=== PATIENT | female | born 1945 | race Caucasian/White ===

== ENCOUNTER 2020-11-07 14:59 | Inpatient (IN) | payer MEDICARE, OTHER ==
[2020-11-07] MEDS ORDERED: Sodium Chloride 0.9% 10 ML Syringe FLUSH PRN (15:25)
--- NOTE | 2020-11-07 16:36 | EDM.PDOC ---
ED HPI GENERAL MEDICAL PROBLEM - General Chief Complaint: Respiratory Problem Stated Complaint: COVID +/LOW O2 Time Seen by Provider: 11/07/20 15:00 Source of Information: Reports: Patient, RN Notes Reviewed History Limitations: Reports: No Limitations - History of Present Illness INITIAL COMMENTS - FREE TEXT/NARRATIVE: Patient is a 75-year-old female presenting to the emergency department with complaints of cough, shortness of breath, and diarrhea. Symptoms began approximately 8 days ago. She was diagnosed with Covid 6 days ago. She states that her was diagnosed today and they were given a pulse oximeter. They checked her oxygen saturations and it was in the upper 80s. She denies any fever or chills. She has had some diarrhea but denies any nausea, vomiting, or abdominal pain. Vital signs on triage showed an oxygen saturation of 88% on room air. Pulse 55, blood pressure 158/86, respiratory rate 16. - Related Data Allergies Allergy/AdvReac Type Severity Reaction Status Date / Time morphine Allergy Rash Verified 11/07/20 15:14 prednisone Allergy flushing Verified 11/07/20 17:21 Home Meds: Home Meds Aspirin [Ecotrin EC] 81 mg PO DAILY 11/07/20 [History] Calcium Carbonate/Vitamin D3 [Calcium 600Mg-D3 400 Unit Sfgl] 1 tab PO DAILY 11/07/20 [History] Cholecalciferol (Vitamin D3) [Vitamin D3] 2,000 unit PO DAILY 11/07/20 [History] Cyanocobalamin (Vitamin B-12) [Vitamin B-12] 1,000 mcg PO DAILY 11/07/20 [History] Metoprolol Succinate 12.5 mg PO DAILY 11/07/20 [History] Simvastatin [Zocor] 20 mg PO BEDTIME 11/07/20 [History] lisinopriL [Lisinopril] 20 mg PO DAILY 11/07/20 [History] Zinc Sulfate [Zincate] 220 mg PO DAILY #14 cap 11/09/20 [Rx] dexAMETHasone [Dexamethasone] 6 mg PO DAILY #3 tablet 11/09/20 [Rx] Past Medical History Cardiovascular History: Reports: High Cholesterol, Hypertension - Infectious Disease History Infectious Disease History: Reports: Novel Coronavirus - Past Surgical History GI Surgical History: Reports: Appendectomy Musculoskeletal Surgical History: Reports: Hip Replacement, Shoulder Replacement, Other (See Below) Other Musculoskeletal Surgeries/Procedures:: kneecap replacement Social & Family History - Tobacco Use Tobacco Use Status *Q: Former Tobacco User Used Tobacco, but Quit: Yes Month/Year Tobacco Last Used: 29 years ago - Caffeine Use Caffeine Use: Reports: None - Recreational Drug Use Recreational Drug Use: No ED ROS GENERAL - Review of Systems Review Of Systems: See Below Constitutional: Reports: Fatigue. Denies: Fever, Chills HEENT: Reports: No Symptoms Respiratory: Reports: Shortness of Breath, Cough. Denies: Wheezing, Pleuritic Chest Pain Cardiovascular: Reports: No Symptoms. Denies: Chest Pain, Lightheadedness Endocrine: Reports: No Symptoms GI/Abdominal: Reports: Diarrhea. Denies: Abdominal Pain, Nausea, Vomiting : Reports: No Symptoms Musculoskeletal: Reports: No Symptoms Skin: Reports: No Symptoms Neurological: Reports: No Symptoms Psychiatric: Reports: No Symptoms Hematologic/Lymphatic: Reports: No Symptoms Immunologic: Reports: No Symptoms ED EXAM, GENERAL - Physical Exam Exam: See Below General Appearance: Alert, WD/WN, No Apparent Distress Respiratory/Chest: No Respiratory Distress, No Accessory Muscle Use, Chest Non- Tender, Crackles (Right middle and lower lobe. Left lower lobe). No: Wheezing Cardiovascular: Normal Peripheral Pulses, Regular Rate, Rhythm, No Edema, No Gallop, No JVD, No Murmur, No Rub Neurological: Alert, Oriented, CN II-XII Intact, Normal Cognition, Normal Gait, Normal Reflexes, No Motor/Sensory Deficits Psychiatric: Normal Affect, Normal Mood Skin Exam: Warm, Dry, Intact, Normal Color, No Rash #1 Interpretation EKG Date: 11/07/20 Time: 15:40 Rhythm: NSR Rate (Beats/Min): 85 [place]: Normal P-Wave: Present QRS: Normal ST-T: Normal QT: Normal Course - Vital Signs Last Recorded V/S: Last Vital Signs Temp 98.4 F 11/09/20 11:12 Pulse 66 11/09/20 11:12 Resp 18 11/09/20 11:12 BP 118/67 11/09/20 11:12 Pulse Ox 90 L 11/09/20 11:12 - Orders/Labs/Meds Labs: Laboratory Tests 11/07/20 11/07/20 11/07/20 Range/Units 15:54 16:04 16:04 WBC 5.57 (3.98-10.04) K/mm3 RBC 4.25 (3.98-5.22) M/mm3 Hgb 12.6 (11.2-15.7) gm/dl Hct 36.9 (34.1-44.9) % MCV 86.8 (79.4-94.8) fl MCH 29.6 (25.6-32.2) pg MCHC 34.1 (32.2-35.5) g/dl RDW Std Deviation 37.7 (36.4-46.3) fL Plt Count 210 (182-369) K/mm3 MPV 10.5 (9.4-12.3) fl Neut % (Auto) 78.0 H (34.0-71.1) % Lymph % (Auto) 9.9 L (19.3-51.7) % [place] % (Auto) 11.7 (4.7-12.5) % Eos % (Auto) 0 L (0.7-5.8) Baso % (Auto) 0.2 (0.1-1.2) % Neut # (Auto) 4.35 (1.56-6.13) K/mm3 Lymph # (Auto) 0.55 L (1.18-3.74) K/mm3 [place] # (Auto) 0.65 H (0.24-0.36) K/mm3 Eos # (Auto) 0.00 L (0.04-0.36) K/mm3 Baso # (Auto) 0.01 (0.01-0.08) K/mm3 Manual Slide Review Abnormal smear D-Dimer, Quantitative 0.91 H (0.19-0.50) mg/L Puncture Site Rt radial ABG pH 7.48 H (7.35-7.45) ABG pCO2 32.7 L (35.0-45.0) mmHg ABG pO2 60.0 L (80.0-100.0) mmHg ABG HCO3 24.2 (22.0-26.0) meq/L ABG O2 Saturation 90.7 L (96.0-97.0) % ABG Base Excess 1.6 (-2-2.0) Jorden Test Positive A-a Gradient 49 mmHg O2 Delivery Device Room air Oxygen Flow Rate 0.0 FiO2 21.00 (21.00-100.00) % Sodium (136-145) mEq/L Potassium (3.5-5.1) mEq/L Chloride (98-107) mEq/L Carbon Dioxide (21-32) mEq/L Anion Gap (5-15) BUN (7-18) mg/dL Creatinine (0.55-1.02) mg/dL Est Cr Clr Drug Dosing mL/min Estimated GFR (MDRD) (>60) mL/min BUN/Creatinine Ratio (14-18) Glucose (83-115) mg/dL Calcium (8.5-10.1) mg/dL Ferritin (8-252) ng/ml Total Bilirubin (0.2-1.0) mg/dL AST (15-37) U/L ALT (14-59) U/L Alkaline Phosphatase (46-116) U/L Lactate Dehydrogenase (81-234) U/L Troponin I (0.00-0.056) ng/mL C-Reactive Protein (<1.0) mg/dL NT-Pro-B Natriuret Pep (0-125) pg/mL Total Protein (6.4-8.2) g/dl Albumin (3.4-5.0) g/dl Globulin gm/dL Albumin/Globulin Ratio (1-2) 11/07/20 11/07/20 11/07/20 Range/Units 16:04 16:04 16:04 WBC (3.98-10.04) K/mm3 RBC (3.98-5.22) M/mm3 Hgb (11.2-15.7) gm/dl Hct (34.1-44.9) % MCV (79.4-94.8) fl MCH (25.6-32.2) pg MCHC (32.2-35.5) g/dl RDW Std Deviation (36.4-46.3) fL Plt Count (182-369) K/mm3 MPV (9.4-12.3) fl Neut % (Auto) (34.0-71.1) % Lymph % (Auto) (19.3-51.7) % [place] % (Auto) (4.7-12.5) % Eos % (Auto) (0.7-5.8) Baso % (Auto) (0.1-1.2) % Neut # (Auto) (1.56-6.13) K/mm3 Lymph # (Auto) (1.18-3.74) K/mm3 [place] # (Auto) (0.24-0.36) K/mm3 Eos # (Auto) (0.04-0.36) K/mm3 Baso # (Auto) (0.01-0.08) K/mm3 Manual Slide Review D-Dimer, Quantitative (0.19-0.50) mg/L Puncture Site ABG pH (7.35-7.45) ABG pCO2 (35.0-45.0) mmHg ABG pO2 (80.0-100.0) mmHg ABG HCO3 (22.0-26.0) meq/L ABG O2 Saturation (96.0-97.0) % ABG Base Excess (-2-2.0) Jorden Test A-a Gradient mmHg O2 Delivery Device Oxygen Flow Rate FiO2 (21.00-100.00) % Sodium 125 L (136-145) mEq/L Potassium 3.1 L (3.5-5.1) mEq/L Chloride 89 L (98-107) mEq/L Carbon Dioxide 26 (21-32) mEq/L Anion Gap 13.1 (5-15) BUN 10 (7-18) mg/dL Creatinine 0.8 (0.55-1.02) mg/dL Est Cr Clr Drug Dosing 48.80 mL/min Estimated GFR (MDRD) > 60 (>60) mL/min BUN/Creatinine Ratio 12.5 L (14-18) Glucose 105 (83-115) mg/dL Calcium 8.9 (8.5-10.1) mg/dL Ferritin 470 H (8-252) ng/ml Total Bilirubin 0.4 (0.2-1.0) mg/dL AST 25 (15-37) U/L ALT 23 (14-59) U/L Alkaline Phosphatase 59 (46-116) U/L Lactate Dehydrogenase 233 (81-234) U/L Troponin I < 0.017 (0.00-0.056) ng/mL C-Reactive Protein 7.7 H* (<1.0) mg/dL NT-Pro-B Natriuret Pep 557 H (0-125) pg/mL Total Protein 6.2 L (6.4-8.2) g/dl Albumin 3.0 L (3.4-5.0) g/dl Globulin 3.2 gm/dL Albumin/Globulin Ratio 0.9 L (1-2) Meds: Medications Discontinued Medications Generic Name Dose Route Start Last Admin Trade Name Freq PRN Reason Stop Dose Admin Acetaminophen 650 mg 11/07/20 19:25 Tylenol PO Q4H PRN Pain (Mild 1-3)/fever Acetaminophen 650 mg 11/07/20 19:25 Tylenol RECTAL Q4H PRN Pain (mild 1-3) Hydrocodone Bitart/Acetaminophen 1 tab 11/07/20 19:25 [place] 325-5 Mg PO Q4H PRN Pain (moderate 4-6) Albuterol/Ipratropium 3 ml 11/07/20 19:25 Duoneb 3.0-0.5 Mg/3 Ml NEB Q4H PRN Shortness Of Breath/wheezing Aspirin 81 mg 11/08/20 09:00 11/09/20 09:10 Halfprin PO 81 mg DAILY CHARLES Administration Calcium Carbonate 1 tab 11/08/20 09:00 11/09/20 09:09 Calcium Carbonate/Vitamin D 600 Mg-200 Unit PO 1 tab DAILY CHARLES Administration Cholecalciferol 50 mcg 11/08/20 09:00 11/09/20 09:10 Vitamin D3 PO 50 mcg DAILY CHARLES Administration Cyanocobalamin 1,000 mcg 11/08/20 09:00 11/09/20 09:10 Vitamin B12 PO 1,000 mcg DAILY CHARLES Administration Dexamethasone 6 mg 11/07/20 17:20 11/07/20 18:05 Dexamethasone PO 11/07/20 17:21 6 mg ONETIME ONE Administration Dexamethasone 6 mg 11/08/20 09:00 11/08/20 08:45 Decadron IVPUSH 6 mg DAILY CHARLES Administration Dexamethasone 6 mg 11/09/20 09:00 11/09/20 09:11 Dexamethasone PO 11/16/20 09:01 6 mg DAILY CHARLES Administration Enoxaparin Sodium 40 mg 11/08/20 09:00 11/09/20 09:11 Lovenox SUBCUT 40 mg DAILY CHARLES Administration Guaifenesin/Phenylephrine HCl 10 ml 11/07/20 19:36 Robitussin Dm PO Q4H PRN Cough Hydralazine HCl 20 mg 11/07/20 19:32 Apresoline IVPUSH Q4H PRN Hypertension Hydromorphone HCl 0.25 mg 11/07/20 19:25 Dilaudid IVPUSH Q2H PRN Pain (severe 7-10) Sodium Chloride 1,000 mls @ 150 mls/hr 11/07/20 17:19 11/07/20 18:05 Normal Saline IV 11/07/20 23:58 150 mls/hr NOW STA Administration Promethazine HCl 6.25 mg/ 50.25 mls @ 100 mls/hr 11/07/20 19:25 Sodium Chloride IV Q6H PRN Nausea/Vomiting Remdesivir 200 mg/ Sodium 250 mls @ 250 mls/hr 11/07/20 20:46 11/07/20 21:41 Chloride IV 11/07/20 20:47 250 mls/hr ONETIME ONE Administration Remdesivir 100 mg/ Sodium 100 mls @ 100 mls/hr 11/08/20 09:00 Chloride IV 11/11/20 09:59 Q24H CHARLES Remdesivir 100 mg/ Sodium 100 mls @ 100 mls/hr 11/08/20 21:30 11/08/20 21:22 Chloride IV 11/11/20 22:29 100 mls/hr Q24H CHARLES Administration Insulin Human Lispro 0 unit 11/07/20 19:31 Humalog SUBCUT TIDAC PRN Hyperglycemia Protocol Insulin Human Lispro 0 unit 11/08/20 11:00 11/09/20 11:52 Humalog SUBCUT Not Given TIDAC CHARLES Protocol Lisinopril 20 mg 11/08/20 09:00 11/09/20 09:09 Prinivil PO 20 mg DAILY CHARLES Administration Metoprolol Succinate 12.5 mg 11/08/20 09:00 11/08/20 09:16 Toprol Xl PO Not Given DAILY CHARLES Metoprolol Succinate 12.5 mg 11/08/20 21:00 11/08/20 21:24 Toprol Xl PO 12.5 mg BEDTIME CHARLES Administration Metoprolol Tartrate 5 mg 11/07/20 19:33 Lopressor IVPUSH Q6H PRN Tachycardia Ondansetron HCl 4 mg 11/07/20 19:25 Zofran IV Q6H PRN Nausea/Vomiting Polyethylene Glycol 17 gm 11/07/20 19:25 Miralax PO DAILY PRN Constipation Potassium Chloride 40 meq 11/07/20 17:18 11/07/20 18:05 Klor-Con M20 PO 11/07/20 17:19 40 meq ONETIME ONE Administration Senna/Docusate Sodium 1 tab 11/07/20 19:25 Senna Plus PO BID PRN Constipation Simvastatin 20 mg 11/07/20 21:00 11/08/20 21:23 Zocor PO 20 mg BEDTIME CHARLES Administration Sodium Chloride 10 ml 11/07/20 15:25 11/07/20 18:09 Saline Flush FLUSH 10 ml ASDIRECTED PRN Administration Keep Vein Open Zinc Sulfate 220 mg 11/08/20 09:00 11/09/20 09:08 Zincate PO 220 mg DAILY CHARLES Administration - Re-Assessments/Exams Free Text/Narrative Re-Assessment/Exam: Patient is a 75-year-old female presenting to the emergency department with complaints of cough, shortness of breath, and low oxygen saturations. She was diagnosed as Covid +6 days ago, but has had symptoms for 8 days. Oxygen saturations at home were found to be in the upper 80s. On triage, her oxygen saturation was 88%. Since triage, her oxygen has been maintaining 87 to 89% on room air. I have ordered CBC, CMP, CRP, D-dimer, troponin, proBNP, LDH, ferritin, chest x-ray, EKG, ABGs. 11/07/20 16:25 ABGs show a pH of 7.48, PCO2 32.7, PO2 60, O2 saturation 90.7. Patient has been placed on 2 L of O2 and is saturating 96 to 97%. 11/07/20 1800 Hematology was significant for D-dimer elevated 0.91, sodium low at 125, p otassium 3.1, ferritin 470, CRP 7.7, proBNP 557. Troponin was negative. Chest x-ray shows some increased haziness in the right lower lobe possibly due to Covid pneumonia. Official radiologist read pending. Patient's oxygen saturation was 87 to 89% on room air. She is currently saturating in the mid 90s on 2 L by nasal cannula. I have ordered NS at 150/h as well as potassium 40 mEq p.o. We will give her 6 mg of p.o. dexamethasone. Called and spoke with hospitalist on-call, Dr. Renada. He will admit to the patient. Departure - Departure Time of Disposition: 18:00 Disposition: Admitted As Inpatient 67 Condition: Good Clinical Impression: COVID-19, Hypoxemia - Discharge Information Sepsis Event Note (ED) - Evaluation Sepsis Screening Result: No Definite Risk
[2020-11-07] MEDS ORDERED: Potassium Chloride 20 MEQ Tab.ER PO ONE (17:18)
[2020-11-07] MEDS ORDERED: Sodium Chloride 0.9% 1,000 ML IV STA (17:19)
[2020-11-07] MEDS ORDERED: Dexamethasone 4 MG Tab PO ONE (17:20)
--- NOTE | 2020-11-07 19:21 | PCM.HP.2 ---
H&P History of Present Illness - General Date of Service: 11/07/20 Admit Problem/Dx: Admission Diagnosis/Problem Admission Diagnosis/Problem Hypoxia Source of Information: Patient, Old Records, Provider, RN Notes Reviewed History Limitations: Reports: Respiratory Distress - History of Present Illness Initial Comments - Free Text/Narative: This is a 75 yo elderly whit female with past medical hx/o HTN, HLD, Hx/o Hip and Shoulder Surgery and Overweight who presented to ED with complaints of worsening COVID-19 infection mainly with increased shortness of breath, wet cough, loss of sense of smell and taste, diarrhea, reduced appetite and tired. No fever or chills. No other GI/ complaints. She has been symptomatic for the past 8 days but diagnosed with Covid-19 6 days ago. Apparently she received no treatment outpatient. Her was just diagnosed today. She states that her O2 sat was in the upper 80s. In ED, she had a documented O2 sat of 88% on RA. Her initial work up in ED shows a CBC remarkable for Neutrophils of 78% and Lymphocytes of 9.9%. Her coagulation study is positive for D-dimer of 0.91. Her ABG shows a pH of 7.48, pCO2 of 32.7, pO2 of 60, HCO3 of 24.2 and O2 sat of 90.7 on 21% FiO2. Her chemistry is significant for Na of 125, K of 3.1, Cl of 89, Ferritin of 470, CRP of 7.7, ProBNP of 557, and Albumin of 3.0. Her chest x-ray shows no obvious infiltrates or consolidation. His LDH is within normal limits. Patient is coming in for further treatment of COVID-19 Infection. - Related Data Allergies/Adverse Reactions: Allergies Allergy/AdvReac Type Severity Reaction Status Date / Time morphine Allergy Rash Verified 11/07/20 15:14 prednisone Allergy flushing Verified 11/07/20 17:21 Home Medications: Home Meds Aspirin [Ecotrin EC] 81 mg PO DAILY 11/07/20 [History] Calcium Carbonate/Vitamin D3 [Calcium 600Mg-D3 400 Unit Sfgl] 1 tab PO DAILY 11/07/20 [History] Cholecalciferol (Vitamin D3) [Vitamin D3] 2,000 unit PO DAILY 11/07/20 [History] Cyanocobalamin (Vitamin B-12) [Vitamin B-12] 1,000 mcg PO DAILY 11/07/20 [History] Metoprolol Succinate 12.5 mg PO DAILY 11/07/20 [History] Simvastatin [Zocor] 20 mg PO BEDTIME 11/07/20 [History] lisinopriL [Lisinopril] 20 mg PO DAILY 11/07/20 [History] Zinc Sulfate [Zincate] 220 mg PO DAILY #14 cap 11/09/20 [Rx] dexAMETHasone [Dexamethasone] 6 mg PO DAILY #3 tablet 11/09/20 [Rx] Past Medical History Cardiovascular History: Reports: High Cholesterol, Hypertension - Infectious Disease History Infectious Disease History: Reports: Novel Coronavirus - Past Surgical History GI Surgical History: Reports: Appendectomy Musculoskeletal Surgical History: Reports: Hip Replacement, Shoulder Replacement, Other (See Below) Other Musculoskeletal Surgeries/Procedures:: kneecap replacement Social & Family History - Tobacco Use Tobacco Use Status *Q: Former Tobacco User Used Tobacco, but Quit: Yes Month/Year Tobacco Last Used: 29 years ago - Caffeine Use Caffeine Use: Reports: None - Recreational Drug Use Recreational Drug Use: No H&P Review of Systems - Review of Systems: Review Of Systems: See Below General: Reports: Decreased Appetite, Other (tired). Denies: Fever, Chills HEENT: Reports: Other (loss of sense of taste and appetite). Denies: Sore Throat Pulmonary: Reports: Shortness of Breath, Cough, Sputum Cardiovascular: Denies: Chest Pain, Edema, Lightheadedness Gastrointestinal: Reports: Diarrhea, Decreased Appetite. Denies: Abdominal Pain, Nausea, Vomiting Genitourinary: Denies: Frequency Musculoskeletal: Denies: Joint Pain Skin: Denies: Pruritis, Rash Psychiatric: Denies: Depression, Anxiety Neurological: Denies: Confusion, Difficulty Walking, Weakness Hematologic/Lymphatic: Denies: Anemia, Easy Bleeding Immunologic: Reports: No Symptoms Exam - Exam Exam: See Below - Vital Signs Vital Signs: Last Vital Signs Temp Pulse 55 L 11/07/20 15:11 Resp 16 11/07/20 15:11 BP 158/86 H 11/07/20 15:11 Pulse Ox 96 11/07/20 17:30 Weight: 68.039 kg - Exam Quality Assessment: Supplemental Oxygen General: Alert, Oriented, Cooperative HEENT: Conjunctiva Clear, EACs Clear, EOMI, Hearing Intact, Mucosa Moist & [place], Nares Patent, Normal Nasal Septum, Posterior Pharynx Clear, Pupils Equal, Pupils Reactive, TMs Clear Neck: Supple, Trachea Midline Lungs: Normal Respiratory Effort, Decreased Breath Sounds Cardiovascular: Regular Rate, Regular Rhythm GI/Abdominal Exam: Normal Bowel Sounds, Soft, Non-Tender, No Organomegaly, No D istention, No Abnormal Bruit (Female) Exam: Deferred Rectal (Female) Exam: Deferred Back Exam: Normal Inspection, Decreased Range of Motion Extremities: Normal Inspection, Normal Range of Motion, Non-Tender, No Pedal Edema, Normal Capillary Refill Peripheral Pulses: 2+: Dorsalis Pedis (L), Dorsalis Pedis (R) Skin: Warm, Dry, Intact Neuro Extensive - Mental Status: Normal Mood/Affect, Normal Cognition, Memory Intact Neuro Extensive - Motor, Sensory, Reflexes: CN II-XII Intact, Normal Gait DTR: 2+: Patella (R), Achilles (R) Psychiatric: Alert, Normal Affect, Normal Mood - Patient Data Lab Results Last 24 hrs: Laboratory Results - last 24 hr 11/07/20 11/07/20 11/07/20 Range/Units 15:54 16:04 16:04 WBC 5.57 (3.98-10.04) K/mm3 RBC 4.25 (3.98-5.22) M/mm3 Hgb 12.6 (11.2-15.7) gm/dl Hct 36.9 (34.1-44.9) % MCV 86.8 (79.4-94.8) fl MCH 29.6 (25.6-32.2) pg MCHC 34.1 (32.2-35.5) g/dl RDW Std Deviation 37.7 (36.4-46.3) fL Plt Count 210 (182-369) K/mm3 MPV 10.5 (9.4-12.3) fl Neut % (Auto) 78.0 H (34.0-71.1) % Lymph % (Auto) 9.9 L (19.3-51.7) % [place] % (Auto) 11.7 (4.7-12.5) % Eos % (Auto) 0 L (0.7-5.8) Baso % (Auto) 0.2 (0.1-1.2) % Neut # (Auto) 4.35 (1.56-6.13) K/mm3 Lymph # (Auto) 0.55 L (1.18-3.74) K/mm3 [place] # (Auto) 0.65 H (0.24-0.36) K/mm3 Eos # (Auto) 0.00 L (0.04-0.36) K/mm3 Baso # (Auto) 0.01 (0.01-0.08) K/mm3 Manual Slide Review Abnormal smear D-Dimer, Quantitative 0.91 H (0.19-0.50) mg/L Puncture Site Rt radial ABG pH 7.48 H (7.35-7.45) ABG pCO2 32.7 L (35.0-45.0) mmHg ABG pO2 60.0 L (80.0-100.0) mmHg ABG HCO3 24.2 (22.0-26.0) meq/L ABG O2 Saturation 90.7 L (96.0-97.0) % ABG Base Excess 1.6 (-2-2.0) Jorden Test Positive A-a Gradient 49 mmHg O2 Delivery Device Room air Oxygen Flow Rate 0.0 FiO2 21.00 (21.00-100.00) % Sodium (136-145) mEq/L Potassium (3.5-5.1) mEq/L Chloride (98-107) mEq/L Carbon Dioxide (21-32) mEq/L Anion Gap (5-15) BUN (7-18) mg/dL Creatinine (0.55-1.02) mg/dL Est Cr Clr Drug Dosing mL/min Estimated GFR (MDRD) (>60) mL/min BUN/Creatinine Ratio (14-18) Glucose (83-115) mg/dL Calcium (8.5-10.1) mg/dL Ferritin (8-252) ng/ml Total Bilirubin (0.2-1.0) mg/dL AST (15-37) U/L ALT (14-59) U/L Alkaline Phosphatase (46-116) U/L Lactate Dehydrogenase (81-234) U/L Troponin I (0.00-0.056) ng/mL C-Reactive Protein (<1.0) mg/dL NT-Pro-B Natriuret Pep (0-125) pg/mL Total Protein (6.4-8.2) g/dl Albumin (3.4-5.0) g/dl Globulin gm/dL Albumin/Globulin Ratio (1-2) 11/07/20 11/07/20 11/07/20 Range/Units 16:04 16:04 16:04 WBC (3.98-10.04) K/mm3 RBC (3.98-5.22) M/mm3 Hgb (11.2-15.7) gm/dl Hct (34.1-44.9) % MCV (79.4-94.8) fl MCH (25.6-32.2) pg MCHC (32.2-35.5) g/dl RDW Std Deviation (36.4-46.3) fL Plt Count (182-369) K/mm3 MPV (9.4-12.3) fl Neut % (Auto) (34.0-71.1) % Lymph % (Auto) (19.3-51.7) % [place] % (Auto) (4.7-12.5) % Eos % (Auto) (0.7-5.8) Baso % (Auto) (0.1-1.2) % Neut # (Auto) (1.56-6.13) K/mm3 Lymph # (Auto) (1.18-3.74) K/mm3 [place] # (Auto) (0.24-0.36) K/mm3 Eos # (Auto) (0.04-0.36) K/mm3 Baso # (Auto) (0.01-0.08) K/mm3 Manual Slide Review D-Dimer, Quantitative (0.19-0.50) mg/L Puncture Site ABG pH (7.35-7.45) ABG pCO2 (35.0-45.0) mmHg ABG pO2 (80.0-100.0) mmHg ABG HCO3 (22.0-26.0) meq/L ABG O2 Saturation (96.0-97.0) % ABG Base Excess (-2-2.0) Jorden Test A-a Gradient mmHg O2 Delivery Device Oxygen Flow Rate FiO2 (21.00-100.00) % Sodium 125 L (136-145) mEq/L Potassium 3.1 L (3.5-5.1) mEq/L Chloride 89 L (98-107) mEq/L Carbon Dioxide 26 (21-32) mEq/L Anion Gap 13.1 (5-15) BUN 10 (7-18) mg/dL Creatinine 0.8 (0.55-1.02) mg/dL Est Cr Clr Drug Dosing 48.80 mL/min Estimated GFR (MDRD) > 60 (>60) mL/min BUN/Creatinine Ratio 12.5 L (14-18) Glucose 105 (83-115) mg/dL Calcium 8.9 (8.5-10.1) mg/dL Ferritin 470 H (8-252) ng/ml Total Bilirubin 0.4 (0.2-1.0) mg/dL AST 25 (15-37) U/L ALT 23 (14-59) U/L Alkaline Phosphatase 59 (46-116) U/L Lactate Dehydrogenase 233 (81-234) U/L Troponin I < 0.017 (0.00-0.056) ng/mL C-Reactive Protein 7.7 H* (<1.0) mg/dL NT-Pro-B Natriuret Pep 557 H (0-125) pg/mL Total Protein 6.2 L (6.4-8.2) g/dl Albumin 3.0 L (3.4-5.0) g/dl Globulin 3.2 gm/dL Albumin/Globulin Ratio 0.9 L (1-2) Result Diagrams: 11/09/20 05:08 11/09/20 05:08 Sepsis Event Note - Evaluation Sepsis Screening Result: No Definite Risk - Focused Exam Vital Signs: Vital Signs Pulse Resp BP Pulse Ox 11/07/20 17:30 96 11/07/20 15:11 55 L 16 158/86 H 88 L Problem List Initiated/Reviewed/Updated: Yes Orders Last 24hrs: Active Orders 24 hr Category Date Time Status Patient Status [ADT] Routine ADT 11/07/20 18:31 Active EKG Documentation Completion [RC] STAT Care 11/07/20 15:25 Active Peripheral IV Care [RC] . DIRECTED Care 11/07/20 15:26 Active Chest 1V Frontal [CR] Stat Exams 11/07/20 15:25 Taken Sodium Chloride 0.9% [Normal Saline] 1,000 ml Med 11/07/20 17:19 Active IV NOW Sodium Chloride 0.9% [Saline Flush] Med 11/07/20 15:25 Active 10 ml FLUSH ASDIRECTED PRN Peripheral IV Insertion Adult [OM.PC] Stat Oth 11/07/20 15:25 Ordered Medication Orders Sodium Chloride (Normal Saline) 1,000 mls @ 150 mls/hr IV NOW STA Stop: 11/07/20 23:58 Last Admin: 11/07/20 18:05 Dose: 150 mls/hr Documented by: [email or web address] Sodium Chloride (Saline Flush) 10 ml FLUSH ASDIRECTED PRN PRN Reason: Keep Vein Open Last Admin: 11/07/20 18:09 Dose: 10 ml Documented by: DARREN Assessment/Plan Comment:: This is a 75 yo elderly whit female with past medical hx/o HTN, HLD, Hx/o Hip and Shoulder Surgery and Overweight who presented to ED with complaints of worsening COVID-19 infection Assessment: Acute: Covid-19 Infection, diagnosed 6 days ago Hypoxia with O2 sat in the upper 80s on RA, now on 2L NC Uncompensated respiratory failure, now n 2L NC satin adequately Sinus Bradycardia with HR in the mid 50s, patient on BB Hyponatremia with Na of 125 Hypokalemia with K of 3.1 Hypochloremia with Cl of 89 Elevated Ferritin Level of 470 Elevated CRP of 7.7 Elevated ProBNP of 557 Hypoalbuminemia with albumin of 3.0 Hypertension Overweight Chronic: HTN HLD Hx/o Hip and Shoulder Surgery Overweight Plan: Admit to [facility]. Monitor for sepsis. Inflammatory markers. Monitor e-lytes abnormality. Dexa 6 mg IVP daily. Unclear if she would benefit with Veklury since it has been over a week since onset of symptoms. No indication to cover for atypical pneumonia, chest x-ray is essentially clear. Lovenox 40 mg subQ daily. Vit D level and thyroid panel. Zinc supplement. Hold parameters for BB since her HR is in the mid 50s. IS and FV with beside pulmonary exercise. Titrate to come off supplemental O2. Viral panel. PRN decongestant/expectorant. Accu-check TIDAC with ISS. Dietary consult. 1800ml fluid restriction. Serial chest x-ray as indicated. DVT prophylaxis: Lovenox as above. GI prophylaxis: H2B. Code status is full. - Mortality Measure Prognosis:: Good
[2020-11-07] MEDS ORDERED: HYDROmorphone 0.5 MG/0.5 ML Syringe IVPUSH PRN (19:25)
[2020-11-07] MEDS ORDERED: Acetaminophen 650 MG Supp RECTAL PRN (19:25)
[2020-11-07] MEDS ORDERED: Albuterol/Ipratropium 3.0-0.5 MG/3 ML Neb Soln NEB PRN (19:25)
[2020-11-07] MEDS ORDERED: Promethazine 6.25 MG in Sodium Chloride 0.9% 50 ML IV PRN (19:25)
[2020-11-07] MEDS ORDERED: Polyethylene Glycol 3350 Powder 17 GM Packet PO PRN (19:25)
[2020-11-07] MEDS ORDERED: Ondansetron 4 MG/2 ML SDV IV PRN (19:25)
[2020-11-07] MEDS ORDERED: Acetaminophen/HYDROcodone 325-5 MG Tab PO PRN (19:25)
[2020-11-07] MEDS ORDERED: Acetaminophen 325 MG Tab PO PRN (19:25)
[2020-11-07] MEDS ORDERED: hydrALAZINE 20 MG/ML SDV IVPUSH PRN (19:32)
[2020-11-07] MEDS ORDERED: Metoprolol Tartrate 5 MG/5 ML SDV IVPUSH PRN (19:33)
[2020-11-07] MEDS ORDERED: guaiFENesin/Dextromethorphan 100-10 MG/5 ML Soln 5 ML Cup PO PRN (19:36)
[2020-11-07] MEDS ORDERED: REMDESIVIR 200 MG in Sodium Chloride 0.9% 250 ML IV ONE (20:46)
[2020-11-07] MEDS: Simvastatin 20 MG Tab PO SCH (22:04)
--- NOTE | 2020-11-08 07:10 | PCM.PN ---
- General Info Date of Service: 11/08/20 Admission Dx/Problem (Free Text): Admission Diagnosis/Problem Admission Diagnosis/Problem Hypoxia Subjective Update: No overnight or acute issues, She is now on RA. No complaints of SOB or chest pain. Functional Status: Reports: Pain Controlled, Tolerating Diet, Ambulating, Urinating, Incentive Spirometry. Denies: New Symptoms - Review of Systems General: Denies: Fever, Chills HEENT: Denies: Contact Lenses Pulmonary: Reports: Cough. Denies: Shortness of Breath Cardiovascular: Denies: Chest Pain Gastrointestinal: Denies: Abdominal Pain, Nausea, Vomiting Genitourinary: Reports: Incontinence Musculoskeletal: Denies: Joint Pain Neurological: Denies: Confusion, Weakness Psychiatric: Denies: Confusion, Agitation, Suicidal Ideation - Patient Data Vitals - Most Recent: Last Vital Signs Temp 36.8 C 11/08/20 00:14 Pulse 66 11/08/20 00:14 Resp 16 11/08/20 00:14 BP 92/56 L 11/08/20 00:14 Pulse Ox 92 L 11/08/20 00:14 Weight - Most Recent: 67.086 kg I&O - Last 24 Hours: Intake & Output 11/07/20 11/08/20 11/08/20 22:59 06:59 14:59 Intake Total 1350 Output Total 1525 Balance -175 Lab Results Last 24 Hours: Laboratory Results - last 24 hr 11/07/20 11/07/20 11/07/20 Range/Units 15:54 16:04 16:04 WBC 5.57 (3.98-10.04) K/mm3 RBC 4.25 (3.98-5.22) M/mm3 Hgb 12.6 (11.2-15.7) gm/dl Hct 36.9 (34.1-44.9) % MCV 86.8 (79.4-94.8) fl MCH 29.6 (25.6-32.2) pg MCHC 34.1 (32.2-35.5) g/dl RDW Std Deviation 37.7 (36.4-46.3) fL Plt Count 210 (182-369) K/mm3 MPV 10.5 (9.4-12.3) fl Neut % (Auto) 78.0 H (34.0-71.1) % Lymph % (Auto) 9.9 L (19.3-51.7) % Putnam % (Auto) 11.7 (4.7-12.5) % Eos % (Auto) 0 L (0.7-5.8) Baso % (Auto) 0.2 (0.1-1.2) % Neut # (Auto) 4.35 (1.56-6.13) K/mm3 Lymph # (Auto) 0.55 L (1.18-3.74) K/mm3 Putnam # (Auto) 0.65 H (0.24-0.36) K/mm3 Eos # (Auto) 0.00 L (0.04-0.36) K/mm3 Baso # (Auto) 0.01 (0.01-0.08) K/mm3 Manual Slide Review Abnormal smear D-Dimer, Quantitative 0.91 H (0.19-0.50) mg/L Puncture Site Rt radial ABG pH 7.48 H (7.35-7.45) ABG pCO2 32.7 L (35.0-45.0) mmHg ABG pO2 60.0 L (80.0-100.0) mmHg ABG HCO3 24.2 (22.0-26.0) meq/L ABG O2 Saturation 90.7 L (96.0-97.0) % ABG Base Excess 1.6 (-2-2.0) Jorden Test Positive A-a Gradient 49 mmHg O2 Delivery Device Room air Oxygen Flow Rate 0.0 FiO2 21.00 (21.00-100.00) % Sodium (136-145) mEq/L Potassium (3.5-5.1) mEq/L Chloride (98-107) mEq/L Carbon Dioxide (21-32) mEq/L Anion Gap (5-15) BUN (7-18) mg/dL Creatinine (0.55-1.02) mg/dL Est Cr Clr Drug Dosing mL/min Estimated GFR (MDRD) (>60) mL/min BUN/Creatinine Ratio (14-18) Glucose (83-115) mg/dL Calcium (8.5-10.1) mg/dL Magnesium (1.8-2.4) mg/dl Ferritin (8-252) ng/ml Total Bilirubin (0.2-1.0) mg/dL AST (15-37) U/L ALT (14-59) U/L Alkaline Phosphatase (46-116) U/L Lactate Dehydrogenase (81-234) U/L Troponin I (0.00-0.056) ng/mL C-Reactive Protein (<1.0) mg/dL NT-Pro-B Natriuret Pep (0-125) pg/mL Total Protein (6.4-8.2) g/dl Albumin (3.4-5.0) g/dl Globulin gm/dL Albumin/Globulin Ratio (1-2) Free T4 (0.76-1.46) ng/dL TSH 3rd Generation (0.358-3.74) uIU/mL 11/07/20 11/07/20 11/07/20 Range/Units 16:04 16:04 16:04 WBC (3.98-10.04) K/mm3 RBC (3.98-5.22) M/mm3 Hgb (11.2-15.7) gm/dl Hct (34.1-44.9) % MCV (79.4-94.8) fl MCH (25.6-32.2) pg MCHC (32.2-35.5) g/dl RDW Std Deviation (36.4-46.3) fL Plt Count (182-369) K/mm3 MPV (9.4-12.3) fl Neut % (Auto) (34.0-71.1) % Lymph % (Auto) (19.3-51.7) % Putnam % (Auto) (4.7-12.5) % Eos % (Auto) (0.7-5.8) Baso % (Auto) (0.1-1.2) % Neut # (Auto) (1.56-6.13) K/mm3 Lymph # (Auto) (1.18-3.74) K/mm3 Putnam # (Auto) (0.24-0.36) K/mm3 Eos # (Auto) (0.04-0.36) K/mm3 Baso # (Auto) (0.01-0.08) K/mm3 Manual Slide Review D-Dimer, Quantitative (0.19-0.50) mg/L Puncture Site ABG pH (7.35-7.45) ABG pCO2 (35.0-45.0) mmHg ABG pO2 (80.0-100.0) mmHg ABG HCO3 (22.0-26.0) meq/L ABG O2 Saturation (96.0-97.0) % ABG Base Excess (-2-2.0) Jorden Test A-a Gradient mmHg O2 Delivery Device Oxygen Flow Rate FiO2 (21.00-100.00) % Sodium 125 L (136-145) mEq/L Potassium 3.1 L (3.5-5.1) mEq/L Chloride 89 L (98-107) mEq/L Carbon Dioxide 26 (21-32) mEq/L Anion Gap 13.1 (5-15) BUN 10 (7-18) mg/dL Creatinine 0.8 (0.55-1.02) mg/dL Est Cr Clr Drug Dosing 48.80 mL/min Estimated GFR (MDRD) > 60 (>60) mL/min BUN/Creatinine Ratio 12.5 L (14-18) Glucose 105 (83-115) mg/dL Calcium 8.9 (8.5-10.1) mg/dL Magnesium (1.8-2.4) mg/dl Ferritin 470 H (8-252) ng/ml Total Bilirubin 0.4 (0.2-1.0) mg/dL AST 25 (15-37) U/L ALT 23 (14-59) U/L Alkaline Phosphatase 59 (46-116) U/L Lactate Dehydrogenase 233 (81-234) U/L Troponin I < 0.017 (0.00-0.056) ng/mL C-Reactive Protein 7.7 H* (<1.0) mg/dL NT-Pro-B Natriuret Pep 557 H (0-125) pg/mL Total Protein 6.2 L (6.4-8.2) g/dl Albumin 3.0 L (3.4-5.0) g/dl Globulin 3.2 gm/dL Albumin/Globulin Ratio 0.9 L (1-2) Free T4 (0.76-1.46) ng/dL TSH 3rd Generation (0.358-3.74) uIU/mL 11/08/20 11/08/20 Range/Units 05:55 05:55 WBC 3.40 L (3.98-10.04) K/mm3 RBC 4.40 (3.98-5.22) M/mm3 Hgb 13.1 (11.2-15.7) gm/dl Hct 38.7 (34.1-44.9) % MCV 88.0 (79.4-94.8) fl MCH 29.8 (25.6-32.2) pg MCHC 33.9 (32.2-35.5) g/dl RDW Std Deviation 38.7 (36.4-46.3) fL Plt Count 204 (182-369) K/mm3 MPV 10.6 (9.4-12.3) fl Neut % (Auto) 75.8 H (34.0-71.1) % Lymph % (Auto) 11.5 L (19.3-51.7) % Putnam % (Auto) 12.4 (4.7-12.5) % Eos % (Auto) 0 L (0.7-5.8) Baso % (Auto) 0.3 (0.1-1.2) % Neut # (Auto) 2.58 (1.56-6.13) K/mm3 Lymph # (Auto) 0.39 L (1.18-3.74) K/mm3 Putnam # (Auto) 0.42 H (0.24-0.36) K/mm3 Eos # (Auto) 0.00 L (0.04-0.36) K/mm3 Baso # (Auto) 0.01 (0.01-0.08) K/mm3 Manual Slide Review D-Dimer, Quantitative (0.19-0.50) mg/L Puncture Site ABG pH (7.35-7.45) ABG pCO2 (35.0-45.0) mmHg ABG pO2 (80.0-100.0) mmHg ABG HCO3 (22.0-26.0) meq/L ABG O2 Saturation (96.0-97.0) % ABG Base Excess (-2-2.0) Jorden Test A-a Gradient mmHg O2 Delivery Device Oxygen Flow Rate FiO2 (21.00-100.00) % Sodium 134 L (136-145) mEq/L Potassium 4.1 (3.5-5.1) mEq/L Chloride 100 (98-107) mEq/L Carbon Dioxide 26 (21-32) mEq/L Anion Gap 12.1 (5-15) BUN 10 (7-18) mg/dL Creatinine 0.6 (0.55-1.02) mg/dL Est Cr Clr Drug Dosing 65.06 mL/min Estimated GFR (MDRD) > 60 (>60) mL/min BUN/Creatinine Ratio 16.7 (14-18) Glucose 119 H (83-115) mg/dL Calcium 9.0 (8.5-10.1) mg/dL Magnesium 1.9 (1.8-2.4) mg/dl Ferritin (8-252) ng/ml Total Bilirubin 0.2 (0.2-1.0) mg/dL AST 22 (15-37) U/L ALT 24 (14-59) U/L Alkaline Phosphatase 58 (46-116) U/L Lactate Dehydrogenase (81-234) U/L Troponin I (0.00-0.056) ng/mL C-Reactive Protein 8.9 H* (<1.0) mg/dL NT-Pro-B Natriuret Pep (0-125) pg/mL Total Protein 6.5 (6.4-8.2) g/dl Albumin 2.9 L (3.4-5.0) g/dl Globulin 3.6 gm/dL Albumin/Globulin Ratio 0.8 L (1-2) Free T4 1.73 H (0.76-1.46) ng/dL TSH 3rd Generation 0.854 (0.358-3.74) uIU/mL Med Orders - Current: Current Medications Acetaminophen (Tylenol) 650 mg PO Q4H PRN PRN Reason: Pain (Mild 1-3)/fever Acetaminophen (Tylenol) 650 mg RECTAL Q4H PRN PRN Reason: Pain (mild 1-3) Hydrocodone Bitart/Acetaminophen (Ama 325-5 Mg) 1 tab PO Q4H PRN PRN Reason: Pain (moderate 4-6) Albuterol/Ipratropium (Duoneb 3.0-0.5 Mg/3 Ml) 3 ml NEB Q4H PRN PRN Reason: Shortness Of Breath/wheezing Aspirin (Halfprin) 81 mg PO DAILY [facility] Cholecalciferol (Vitamin D3) 50 mcg PO DAILY [facility] Cyanocobalamin (Vitamin B12) 1,000 mcg PO DAILY [facility] Dexamethasone (Decadron) 6 mg IVPUSH DAILY [facility] Enoxaparin Sodium (Lovenox) 40 mg SUBCUT DAILY [facility] Guaifenesin/Phenylephrine HCl (Robitussin Dm) 10 ml PO Q4H PRN PRN Reason: Cough Hydralazine HCl (Apresoline) 20 mg IVPUSH Q4H PRN PRN Reason: Hypertension Hydromorphone HCl (Dilaudid) 0.25 mg IVPUSH Q2H PRN PRN Reason: Pain (severe 7-10) Promethazine HCl 6.25 mg/ (Sodium Chloride) 50.25 mls @ 100 mls/hr IV Q6H PRN PRN Reason: Nausea/Vomiting Remdesivir 100 mg/ Sodium (Chloride) 100 mls @ 100 mls/hr IV Q24H [facility] Stop: 11/11/20 22:29 Insulin Human Lispro (Humalog) 0 unit SUBCUT TIDAC PRN; Protocol PRN Reason: Hyperglycemia Lisinopril (Prinivil) 20 mg PO DAILY [facility] Metoprolol Succinate (Toprol Xl) 12.5 mg PO DAILY [facility] Metoprolol Tartrate (Lopressor) 5 mg IVPUSH Q6H PRN PRN Reason: Tachycardia Non-Formulary Medication (Calcium Carbonate/Vitamin D3 [Calcium 600mg-D3 400 Unit Sfgl]) 1 tab PO DAILY [facility] Ondansetron HCl (Zofran) 4 mg IV Q6H PRN PRN Reason: Nausea/Vomiting Polyethylene Glycol (Miralax) 17 gm PO DAILY PRN PRN Reason: Constipation Senna/Docusate Sodium (Senna Plus) 1 tab PO BID PRN PRN Reason: Constipation Simvastatin (Zocor) 20 mg PO BEDTIME [facility] Last Admin: 11/07/20 22:04 Dose: 20 mg Documented by: Sodium Chloride (Saline Flush) 10 ml FLUSH ASDIRECTED PRN PRN Reason: Keep Vein Open Last Admin: 11/07/20 18:09 Dose: 10 ml Documented by: Zinc Sulfate (Zincate) 220 mg PO DAILY [facility] Discontinued Medications Dexamethasone (Dexamethasone) 6 mg PO ONETIME ONE Stop: 11/07/20 17:21 Last Admin: 11/07/20 18:05 Dose: 6 mg Documented by: Sodium Chloride (Normal Saline) 1,000 mls @ 150 mls/hr IV NOW STA Stop: 11/07/20 23:58 Last Admin: 11/07/20 18:05 Dose: 150 mls/hr Documented by: Remdesivir 200 mg/ Sodium (Chloride) 250 mls @ 250 mls/hr IV ONETIME ONE Stop: 11/07/20 20:47 Last Admin: 11/07/20 21:41 Dose: 250 mls/hr Documented by: Remdesivir 100 mg/ Sodium (Chloride) 100 mls @ 100 mls/hr IV Q24H [facility] Stop: 11/11/20 09:59 Potassium Chloride (Klor-Con M20) 40 meq PO ONETIME ONE Stop: 11/07/20 17:19 Last Admin: 11/07/20 18:05 Dose: 40 meq Documented by: - Exam Quality Assessment: No: Supplemental Oxygen General: Alert, Oriented, Cooperative, No Acute Distress HEENT: Pupils Equal, Pupils Reactive, EOMI, Mucous Membr. Moist/Sehili Neck: Supple Lungs: Normal Respiratory Effort, Decreased Breath Sounds Cardiovascular: Regular Rate, Regular Rhythm GI/Abdominal Exam: Normal Bowel Sounds, Soft, Non-Tender, No Organomegaly, No Distention, No Abnormal Bruit (Female) Exam: Deferred Back Exam: Normal Inspection, Decreased Range of Motion Extremities: Normal Inspection, Normal Range of Motion, Non-Tender, No Pedal Edema, Normal Capillary Refill Peripheral Pulses: 2+: Dorsalis Pedis (L), Dorsalis Pedis (R) Skin: Warm, Dry, Intact Neurological: No New Focal Deficit Psy/Mental Status: Alert, Normal Affect, Normal Mood Sepsis Event Note - Evaluation Sepsis Screening Result: No Definite Risk - Focused Exam Vital Signs: Vital Signs Temp Pulse Resp BP Pulse Ox 11/08/20 00:14 36.8 C 66 16 92/56 L 92 L 11/07/20 19:53 36.8 C 76 18 136/97 H 94 L - Problem List Review Problem List Initiated/Reviewed/Updated: Yes - My Orders Last 24 Hours: My Active Orders 11/07/20 Dinner Fluid Restriction [DIET] Heart Healthy Diet [DIET] 11/07/20 19:25 Cardiac Monitoring [RC] CONTINUOUS Height and Weight [RC] 0600 Intake and Output [RC] 04,16 Oxygen Therapy [RC] PRN Up With Assistance [RC] ASDIRECTED VTE/DVT Education [RC] PER UNIT ROUTINE Vital Signs [RC] 10,16,22,04 Consult to Case Management/Clubhouse Attendant [CONS] Routine OT Evaluation and Treatment [CONS] Routine PT Evaluation and Treatment [CONS] Routine Respiratory Care Assess and Treatment [CONS] Routine CULTURE SPUTUM + SMEAR [RM] Stat Acetaminophen [TylenoL] 650 mg PO Q4H PRN Acetaminophen [Tylenol] 650 mg RECTAL Q4H PRN Acetaminophen/HYDROcodone [Ama 325-5 MG] 1 tab PO Q4H PRN Albuterol/Ipratropium [DuoNeb 3.0-0.5 MG/3 ML] 3 ml NEB Q4H PRN Docusate Sodium/Sennosides [Senna Plus] 1 tab PO BID PRN HYDROmorphone [Dilaudid] 0.25 mg IVPUSH Q2H PRN Ondansetron [Zofran] 4 mg IV Q6H PRN Promethazine [Phenergan] 6.25 mg Sodium Chloride 0.9% [Normal Saline] 50 ml IV Q6H polyethylene glycoL 3350 [MiraLAX] 17 gm PO DAILY PRN 11/07/20 19:30 RT Aerosol Therapy [RC] ASDIRECTED 11/07/20 19:31 Accu Check [Blood Glucose Check, Bedside] [RC] TIDAC Insulin Lispro [HumaLOG] See Protocol SUBCUT TIDAC PRN 11/07/20 19:32 hydrALAZINE [Apresoline] 20 mg IVPUSH Q4H PRN 11/07/20 19:33 Metoprolol Tartrate [Lopressor] 5 mg IVPUSH Q6H PRN 11/07/20 19:36 Dextromethorphan/guaiFENesin [Robitussin DM] 10 ml PO Q4H PRN 11/07/20 20:40 Resuscitation Status Routine 11/07/20 21:00 Simvastatin [Zocor] 20 mg PO BEDTIME 11/07/20 21:35 Flutter Valve Therapy [RT Chest Physiotherapy] [RC] ASDIRECTED Incentive Spirometry [RT Incentive Spirometry] [RC] ASDIRECTED 11/07/20 22:53 RESPIRATORY PANEL Routine 11/08/20 05:55 CBC WITH AUTO DIFF [HEME] AM ESR [SEDIMENTATION RATE AUTO] [HEME] AM VITAMIN D,25-HYDROXY [CHEM] Routine 11/08/20 06:56 Pulse Oximetry Continuous Monitoring [OM.PC] Routine 11/08/20 09:00 Aspirin [Halfprin] 81 mg PO DAILY Calcium Carbonate/Vitamin D3 [Calcium 600Mg-D3 400 Unit Sfgl] 1 tab PO DAILY Cholecalciferol (Vitamin D3) [Vitamin D3] 50 mcg PO DAILY Cyanocobalamin (Vitamin B12) [Vitamin B12] 1,000 mcg PO DAILY Enoxaparin [Lovenox] 40 mg SUBCUT DAILY Metoprolol Succinate [Toprol XL] 12.5 mg PO DAILY Zinc Sulfate [Zincate] 220 mg PO DAILY dexAMETHasone [Decadron] 6 mg IVPUSH DAILY lisinopriL [Prinivil] 20 mg PO DAILY 11/08/20 21:30 Remdesivir 100 mg Sodium Chloride 0.9% [Normal Saline] 100 ml IV Q24H 11/09/20 05:11 C-REACTIVE PROTEIN [CHEM] AM CBC WITH AUTO DIFF [HEME] AM COMPREHENSIVE METABOLIC PN,CMP [CHEM] AM D-DIMER QUANTITATIVE [COAG] AM ESR [SEDIMENTATION RATE AUTO] [HEME] AM MAGNESIUM [CHEM] AM 11/10/20 05:11 C-REACTIVE PROTEIN [CHEM] AM CBC WITH AUTO DIFF [HEME] AM COMPREHENSIVE METABOLIC PN,CMP [CHEM] AM ESR [SEDIMENTATION RATE AUTO] [HEME] AM MAGNESIUM [CHEM] AM 11/11/20 05:11 C-REACTIVE PROTEIN [CHEM] AM CBC WITH AUTO DIFF [HEME] AM COMPREHENSIVE METABOLIC PN,CMP [CHEM] AM ESR [SEDIMENTATION RATE AUTO] [HEME] AM MAGNESIUM [CHEM] AM 11/12/20 05:11 C-REACTIVE PROTEIN [CHEM] AM CBC WITH AUTO DIFF [HEME] AM COMPREHENSIVE METABOLIC PN,CMP [CHEM] AM ESR [SEDIMENTATION RATE AUTO] [HEME] AM MAGNESIUM [CHEM] AM - Plan Plan:: This is a 75 yo elderly whit female with past medical hx/o HTN, HLD, Hx/o Hip and Shoulder Surgery and Overweight who presented to ED with complaints of worsening COVID-19 infection Assessment: Acute: Covid-19 Infection, diagnosed 6 days ago Hypoxia with O2 sat in the upper 80s on RA, was on 2L NC Uncompensated respiratory failure, was on 2L NC but now on RA trial Sinus Bradycardia with HR in the mid 50s on BB, resolved Hyponatremia with Na of 125, now 134 Hypokalemia with K of 3.1, now 4.1 resolved Hypochloremia with Cl of 89, now 100, resolved Elevated Ferritin Level of 470 Elevated CRP of 7.7-->now 8.9 Elevated ProBNP of 557 Hypoalbuminemia with albumin of 3.0-->now 2.9 Hypertension, improved Overweight Chronic: HTN HLD Hx/o Hip and Shoulder Surgery Overweight Plan: Continue current treatment. Inflammatory markers. Monitor e-lytes abnormality. Dexa 6 mg IVP daily. Continue 5 day course of Veklury. Lovenox 40 mg subQ daily. Zinc supplement. Hold parameters for BB since her HR is in the mid 50s. IS and FV with beside pulmonary exercise. Viral panel. PRN decongestant/expectorant. Accu-check TIDAC with ISS. Dietary consult. Discontinue fluid restriction. Serial chest x-ray as indicated. DVT prophylaxis: Lovenox as above. GI prophylaxis: H2B. Code status is full.
[2020-11-08] MEDS: Enoxaparin 40 MG/0.4 ML Syringe SUBCUT SCH (08:44)
[2020-11-08] MEDS: Zinc Sulfate 220 MG Cap PO SCH (08:44)
[2020-11-08] MEDS: Calcium Carbonate/Vitamin D3 600 MG-200 Units Tab PO SCH (08:44)
[2020-11-08] MEDS: Lisinopril 20 MG Tab PO SCH (08:44)
[2020-11-08] MEDS: Cholecalciferol (Vitamin D3) 25 MCG Tab PO SCH (08:44)
[2020-11-08] MEDS: Aspirin 81 MG Tab.EC PO SCH (08:44)
[2020-11-08] MEDS: Cyanocobalamin (Vitamin B12) 1,000 MCG Tab PO SCH (08:44)
[2020-11-08] MEDS: Metoprolol Succinate 25 MG Tab.ER PO SCH ×2 (08:45→09:16)
[2020-11-08] MEDS ORDERED: REMDESIVIR 100 MG in Sodium Chloride 0.9% 100 ML IV SCH ×2 (09:00→21:30)
[2020-11-08] MEDS ORDERED: Dexamethasone 10 MG/ML SDV IVPUSH SCH (09:00)
--- NOTE | 2020-11-08 10:24 | CR ---
Chest: Portable view of the chest was obtained. Comparison: No prior chest imaging is available. Heart size is felt to be slightly enlarged. Upper mediastinum is within normal limits. Lungs show slight increased markings which is believed to be chronic. Bilateral shoulder prostheses are seen. Impression: 1. Findings as noted above. 2. Nothing acute is identified. Diagnostic code #2
[2020-11-08 19:42] LABS: BORDETELLA PARAPERT IS1001 Not Detected (Not Detected)
[2020-11-08] MEDS ORDERED: Metoprolol Succinate 25 MG Tab.ER PO SCH (21:00)
[2020-11-08] MEDS: Simvastatin 20 MG Tab PO SCH (21:23)
[2020-11-09] MEDS ORDERED: Dexamethasone 4 MG Tab PO SCH (09:00)
[2020-11-09] MEDS: Zinc Sulfate 220 MG Cap PO SCH (09:08)
[2020-11-09] MEDS: Calcium Carbonate/Vitamin D3 600 MG-200 Units Tab PO SCH (09:09)
[2020-11-09] MEDS: Lisinopril 20 MG Tab PO SCH (09:09)
[2020-11-09] MEDS: Aspirin 81 MG Tab.EC PO SCH (09:10)
[2020-11-09] MEDS: Cyanocobalamin (Vitamin B12) 1,000 MCG Tab PO SCH (09:10)
[2020-11-09] MEDS: Cholecalciferol (Vitamin D3) 25 MCG Tab PO SCH (09:10)
[2020-11-09] MEDS: Enoxaparin 40 MG/0.4 ML Syringe SUBCUT SCH (09:11)
--- NOTE | 2020-11-09 11:30 | PCM.DCSUM1 ---
Discharge Summary - Hospital Course HPI Initial Comments: This is a 75 yo elderly whit female with past medical hx/o HTN, HLD, Hx/o Hip and Shoulder Surgery and Overweight who presented to ED with complaints of worsening COVID-19 infection mainly with increased shortness of breath, wet cough, loss of sense of smell and taste, diarrhea, reduced appetite and tired. No fever or chills. No other GI/ complaints. She has been symptomatic for the past 8 days but diagnosed with Covid-19 6 days ago. Apparently she received no treatment outpatient. Her was just diagnosed today. She states that her O2 sat at was was in the upper 80s. In ED, she had a documented O2 sat of 88% on RA. Her initial work up in ED shows a CBC remarkable for Neutrophils of 78%, and Lymphocytes of 9.9%. Her coagulation study is positive for D-dimer of 0.91. His ABG shows a pH of 7.48, pCO2 of 32.7, pO2 of 60, HCO3 of 24.2 and O2 sat of 90.7 on 21% FiO2. Her chemistry is significant for Na of 125, K of 3.1, Cl of 89, Ferritin of 470, CRP of 7.7, ProBNP of 557, and Albumin of 3.0. Her chest x-ray shows no obvious infiltrates or consolidation. His LDH is within normal limits. Patient is coming in for further treatment of COVID-19 Infection. Assessment/Plan Comment:: This is a 75 yo elderly whit female with past medical hx/o HTN, HLD, Hx/o Hip and Shoulder Surgery and Overweight who presented to ED with complaints of worsening COVID-19 infection Assessment: Acute: Covid-19 Infection, diagnosed 6 days ago Hypoxia with O2 sat in the upper 80s on RA, now on 2L NC Uncompensated respiratory failure, now n 2L NC satin adequately Sinus Bradycardia with HR in the mid 50s, patient on BB Hyponatremia with Na of 125 Hypokalemia with K of 3.1 Hypochloremia with Cl of 89 Elevated Ferritin Level of 470 Elevated CRP of 7.7 Elevated ProBNP of 557 Hypoalbuminemia with albumin of 3.0 Hypertension Overweight Chronic: HTN HLD Hx/o Hip and Shoulder Surgery Overweight Plan: Admit to [facility]. Monitor for sepsis. Inflammatory markers. Monitor e-lytes abnormality. Dexa 6 mg IVP daily. Unclear if she would benefit with Veklury since she has been over a week since onset of symptoms. No indication to cover for atypical pneumonia chest x-ray is essentially clear. Lovenox 40 mg subQ daily. Vit D level and thyroid panel. Zinc supplement. Hold parameters for BB since her HR is in the mid 50s. IS and FV with beside pulmonary exercise. Titrate to come off supplemental O2. Viral panel. PRN decongestant/expectorant. Accu-check TIDAC with ISS. Dietary consult. 1800ml fluid restriction. Serial chest x-ray as indicated. DVT prophylaxis: Lovenox as above. GI prophylaxis: H2B. Code status is full. Diagnosis: Stroke: No - Discharge Data Discharge Date: 11/09/20 Discharge Disposition: Home, Self-Care 01 Condition: Good - Referral to Home Health Primary Care Physician: Mckay Venegas MD - Discharge Diagnosis/Problem(s) (1) COVID-19 SNOMED Code(s): 647436413 ICD Code: U07.1 - COVID-19 Status: Acute (2) Hypoxemia SNOMED Code(s): 126139455 ICD Code: R09.02 - HYPOXEMIA Status: Acute - Patient Summary/Data Consults: Consultations 11/07/20 19:25 Consult to Case Management/Sport Intern [CONS] Routine OT Evaluation and Treatment [CONS] Routine PT Evaluation and Treatment [CONS] Routine Respiratory Care Assess and Treatment [CONS] Routine Hospital Course: Patient has been on room air for greater than 24 hours. She is on day 3 of remdesivir and dexamethasone. She continues to have a cough, but she is able to walk around her room without having desaturations. She also has a home oximetry that she can used to follow her oxygen status. On day of discharge C-reactive protein decreased to 4.5 and her D-dimer is down to 0.61. She will be discharged on 2 more days of dexamethasone, but will stop remdesivir. - Patient Instructions Diet: Usual Diet as Tolerated Activity: As Tolerated Driving: Do Not Drive Showering/Bathing: May Shower Other/Special Instructions: Monitor your pulse oxgentation at least 4 times a day and if oxygensaturations drop below 90% return to the emergency department. Follow up with your PCP in a week. - Discharge Plan *PRESCRIPTION DRUG MONITORING PROGRAM REVIEWED*: No *COPY OF PRESCRIPTION DRUG MONITORING REPORT IN PATIENT ECHO: No Prescriptions/Med Rec: dexAMETHasone [Dexamethasone] 6 mg PO DAILY #3 tablet Zinc Sulfate [Zincate] 220 mg PO DAILY #14 cap Home Medications: Home Meds Aspirin [Ecotrin EC] 81 mg PO DAILY 11/07/20 [History] Calcium Carbonate/Vitamin D3 [Calcium 600Mg-D3 400 Unit Sfgl] 1 tab PO DAILY 11/07/20 [History] Cholecalciferol (Vitamin D3) [Vitamin D3] 2,000 unit PO DAILY 11/07/20 [History] Cyanocobalamin (Vitamin B-12) [Vitamin B-12] 1,000 mcg PO DAILY 11/07/20 [History] Metoprolol Succinate 12.5 mg PO DAILY 11/07/20 [History] Simvastatin [Zocor] 20 mg PO BEDTIME 11/07/20 [History] lisinopriL [Lisinopril] 20 mg PO DAILY 11/07/20 [History] Zinc Sulfate [Zincate] 220 mg PO DAILY #14 cap 11/09/20 [Rx] dexAMETHasone [Dexamethasone] 6 mg PO DAILY #3 tablet 11/09/20 [Rx] Oxygen Therapy Mode: Room Air Patient Handouts: COVID-19: How to Protect Yourself and Others - CDC, Prevent the Spread of COVID-19 if You Are Sick - CDC, Sepsis, Self Care, Adult Referrals: Biju Gross MD [Ordering Only Provider] - 11/22/20 10:30 am (Please follow up with Dr. Gross on November 22 at 10:30. If your symptoms worsen please seek care soon by coming to the ER or making an appointment sooner. ) - Discharge Summary/Plan Comment DC Time >30 min.: No - General Info Date of Service: 11/09/20 Admission Dx/Problem (Free Text: Admission Diagnosis/Problem Admission Diagnosis/Problem Hypoxia Functional Status: Reports: Pain Controlled - Review of Systems General: Reports: No Symptoms HEENT: Reports: No Symptoms Pulmonary: Reports: Cough. Denies: Shortness of Breath Cardiovascular: Reports: No Symptoms Gastrointestinal: Reports: No Symptoms Musculoskeletal: Reports: No Symptoms Neurological: Reports: No Symptoms Psychiatric: Reports: No Symptoms - Patient Data Vitals - Most Recent: Last Vital Signs Temp 98.4 F 11/09/20 08:15 Pulse 66 11/09/20 08:15 Resp 16 11/09/20 08:15 BP 124/74 11/09/20 09:09 Pulse Ox 93 L 11/09/20 08:15 Weight - Most Recent: 146 lb 8 oz I&O - Last 24 hours: Intake & Output 11/08/20 11/09/20 11/09/20 22:59 06:59 14:59 Intake Total 1400 1000 Output Total 950 1100 Balance 450 -100 Lab Results - Last 24 hrs: Laboratory Results - last 24 hr 11/08/20 11/08/20 11/08/20 Range/Units 00:10 11:54 17:22 WBC (3.98-10.04) K/mm3 RBC (3.98-5.22) M/mm3 Hgb (11.2-15.7) gm/dl Hct (34.1-44.9) % MCV (79.4-94.8) fl MCH (25.6-32.2) pg MCHC (32.2-35.5) g/dl RDW Std Deviation (36.4-46.3) fL Plt Count (182-369) K/mm3 MPV (9.4-12.3) fl Neut % (Auto) (34.0-71.1) % Lymph % (Auto) (19.3-51.7) % [place] % (Auto) (4.7-12.5) % Eos % (Auto) (0.7-5.8) Baso % (Auto) (0.1-1.2) % Neut # (Auto) (1.56-6.13) K/mm3 Lymph # (Auto) (1.18-3.74) K/mm3 [place] # (Auto) (0.24-0.36) K/mm3 Eos # (Auto) (0.04-0.36) K/mm3 Baso # (Auto) (0.01-0.08) K/mm3 Manual Slide Review ESR (0-20) mm/hr D-Dimer, Quantitative (0.19-0.50) mg/L Sodium (136-145) mEq/L Potassium (3.5-5.1) mEq/L Chloride (98-107) mEq/L Carbon Dioxide (21-32) mEq/L Anion Gap (5-15) BUN (7-18) mg/dL Creatinine (0.55-1.02) mg/dL Est Cr Clr Drug Dosing mL/min Estimated GFR (MDRD) (>60) mL/min BUN/Creatinine Ratio (14-18) Glucose (83-115) mg/dL POC Glucose 137 H 174 H (83-110) mg/dL Calcium (8.5-10.1) mg/dL Magnesium (1.8-2.4) mg/dl Total Bilirubin (0.2-1.0) mg/dL AST (15-37) U/L ALT (14-59) U/L Alkaline Phosphatase (46-116) U/L C-Reactive Protein (<1.0) mg/dL Total Protein (6.4-8.2) g/dl Albumin (3.4-5.0) g/dl Globulin gm/dL Albumin/Globulin Ratio (1-2) Adenovirus (PCR) Not detected (Not Detected) B. pertussis DNA (PCR) Not detected (Not Detected) B.parapertussis DNA PCR Not detected (Not Detected) C. pneumoniae DNA (PCR) Not detected (Not Detected) Coronavirus OC43 (PCR) Not detected (Not Detected) Coronavirus HKU1 (PCR) Not detected (Not Detected) Coronavirus 229E (PCR) Not detected (Not Detected) Coronavirus NL63 (PCR) Not detected (Not Detected) Human Metapneumovir PCR Not detected (Not Detected) Influenza A (RT-PCR) Not detected (Not Detected) Influenza B (RT-PCR) Not detected (Not Detected) M. pneumoniae (PCR) Not detected (Not Detected) Parainfluenza 1 (PCR) Not detected (Not Detected) Parainfluenza 2 (PCR) Not detected (Not Detected) Parainfluenza 3 (PCR) Not detected (Not Detected) Parainfluenza 4 (PCR) Not detected (Not Detected) RSV (PCR) Not detected (Not Detected) Entero/Rhino (PCR) Not detected (Not Detected) SARS-CoV-2 (PCR) Detected H (Not Detected) 11/09/20 11/09/20 11/09/20 Range/Units 05:08 05:08 05:08 WBC 5.83 (3.98-10.04) K/mm3 RBC 4.65 (3.98-5.22) M/mm3 Hgb 13.6 (11.2-15.7) gm/dl Hct 40.7 (34.1-44.9) % MCV 87.5 (79.4-94.8) fl MCH 29.2 (25.6-32.2) pg MCHC 33.4 (32.2-35.5) g/dl RDW Std Deviation 38.8 (36.4-46.3) fL Plt Count 264 (182-369) K/mm3 MPV 11.4 (9.4-12.3) fl Neut % (Auto) 68.7 (34.0-71.1) % Lymph % (Auto) 15.3 L (19.3-51.7) % [place] % (Auto) 14.8 H (4.7-12.5) % Eos % (Auto) 0.5 L (0.7-5.8) Baso % (Auto) 0.2 (0.1-1.2) % Neut # (Auto) 4.01 (1.56-6.13) K/mm3 Lymph # (Auto) 0.89 L (1.18-3.74) K/mm3 [place] # (Auto) 0.86 H (0.24-0.36) K/mm3 Eos # (Auto) 0.03 L (0.04-0.36) K/mm3 Baso # (Auto) 0.01 (0.01-0.08) K/mm3 Manual Slide Review Normal smear ESR (0-20) mm/hr D-Dimer, Quantitative 0.61 H (0.19-0.50) mg/L Sodium 135 L (136-145) mEq/L Potassium 3.5 (3.5-5.1) mEq/L Chloride 100 (98-107) mEq/L Carbon Dioxide 26 (21-32) mEq/L Anion Gap 12.5 (5-15) BUN 13 (7-18) mg/dL Creatinine 0.8 (0.55-1.02) mg/dL Est Cr Clr Drug Dosing 48.80 mL/min Estimated GFR (MDRD) > 60 (>60) mL/min BUN/Creatinine Ratio 16.3 (14-18) Glucose 114 (83-115) mg/dL POC Glucose (83-110) mg/dL Calcium 8.9 (8.5-10.1) mg/dL Magnesium 2.0 (1.8-2.4) mg/dl Total Bilirubin 0.2 (0.2-1.0) mg/dL AST 26 (15-37) U/L ALT 28 (14-59) U/L Alkaline Phosphatase 57 (46-116) U/L C-Reactive Protein 4.5 H* (<1.0) mg/dL Total Protein 6.6 (6.4-8.2) g/dl Albumin 3.0 L (3.4-5.0) g/dl Globulin 3.6 gm/dL Albumin/Globulin Ratio 0.8 L (1-2) Adenovirus (PCR) (Not Detected) B. pertussis DNA (PCR) (Not Detected) B.parapertussis DNA PCR (Not Detected) C. pneumoniae DNA (PCR) (Not Detected) Coronavirus OC43 (PCR) (Not Detected) Coronavirus HKU1 (PCR) (Not Detected) Coronavirus 229E (PCR) (Not Detected) Coronavirus NL63 (PCR) (Not Detected) Human Metapneumovir PCR (Not Detected) Influenza A (RT-PCR) (Not Detected) Influenza B (RT-PCR) (Not Detected) M. pneumoniae (PCR) (Not Detected) Parainfluenza 1 (PCR) (Not Detected) Parainfluenza 2 (PCR) (Not Detected) Parainfluenza 3 (PCR) (Not Detected) Parainfluenza 4 (PCR) (Not Detected) RSV (PCR) (Not Detected) Entero/Rhino (PCR) (Not Detected) SARS-CoV-2 (PCR) (Not Detected) 11/09/20 11/09/20 11/09/20 Range/Units 06:17 06:47 11:15 WBC (3.98-10.04) K/mm3 RBC (3.98-5.22) M/mm3 Hgb (11.2-15.7) gm/dl Hct (34.1-44.9) % MCV (79.4-94.8) fl MCH (25.6-32.2) pg MCHC (32.2-35.5) g/dl RDW Std Deviation (36.4-46.3) fL Plt Count (182-369) K/mm3 MPV (9.4-12.3) fl Neut % (Auto) (34.0-71.1) % Lymph % (Auto) (19.3-51.7) % [place] % (Auto) (4.7-12.5) % Eos % (Auto) (0.7-5.8) Baso % (Auto) (0.1-1.2) % Neut # (Auto) (1.56-6.13) K/mm3 Lymph # (Auto) (1.18-3.74) K/mm3 [place] # (Auto) (0.24-0.36) K/mm3 Eos # (Auto) (0.04-0.36) K/mm3 Baso # (Auto) (0.01-0.08) K/mm3 Manual Slide Review ESR 33 H (0-20) mm/hr D-Dimer, Quantitative (0.19-0.50) mg/L Sodium (136-145) mEq/L Potassium (3.5-5.1) mEq/L Chloride (98-107) mEq/L Carbon Dioxide (21-32) mEq/L Anion Gap (5-15) BUN (7-18) mg/dL Creatinine (0.55-1.02) mg/dL Est Cr Clr Drug Dosing mL/min Estimated GFR (MDRD) (>60) mL/min BUN/Creatinine Ratio (14-18) Glucose (83-115) mg/dL POC Glucose 89 105 (83-110) mg/dL Calcium (8.5-10.1) mg/dL Magnesium (1.8-2.4) mg/dl Total Bilirubin (0.2-1.0) mg/dL AST (15-37) U/L ALT (14-59) U/L Alkaline Phosphatase (46-116) U/L C-Reactive Protein (<1.0) mg/dL Total Protein (6.4-8.2) g/dl Albumin (3.4-5.0) g/dl Globulin gm/dL Albumin/Globulin Ratio (1-2) Adenovirus (PCR) (Not Detected) B. pertussis DNA (PCR) (Not Detected) B.parapertussis DNA PCR (Not Detected) C. pneumoniae DNA (PCR) (Not Detected) Coronavirus OC43 (PCR) (Not Detected) Coronavirus HKU1 (PCR) (Not Detected) Coronavirus 229E (PCR) (Not Detected) Coronavirus NL63 (PCR) (Not Detected) Human Metapneumovir PCR (Not Detected) Influenza A (RT-PCR) (Not Detected) Influenza B (RT-PCR) (Not Detected) M. pneumoniae (PCR) (Not Detected) Parainfluenza 1 (PCR) (Not Detected) Parainfluenza 2 (PCR) (Not Detected) Parainfluenza 3 (PCR) (Not Detected) Parainfluenza 4 (PCR) (Not Detected) RSV (PCR) (Not Detected) Entero/Rhino (PCR) (Not Detected) SARS-CoV-2 (PCR) (Not Detected) Med Orders - Current: Current Medications Acetaminophen (Tylenol) 650 mg PO Q4H PRN PRN Reason: Pain (Mild 1-3)/fever Acetaminophen (Tylenol) 650 mg RECTAL Q4H PRN PRN Reason: Pain (mild 1-3) Hydrocodone Bitart/Acetaminophen ([place] 325-5 Mg) 1 tab PO Q4H PRN PRN Reason: Pain (moderate 4-6) Albuterol/Ipratropium (Duoneb 3.0-0.5 Mg/3 Ml) 3 ml NEB Q4H PRN PRN Reason: Shortness Of Breath/wheezing Aspirin (Halfprin) 81 mg PO DAILY [facility] Last Admin: 11/09/20 09:10 Dose: 81 mg Documented by: Calcium Carbonate (Calcium Carbonate/Vitamin D 600 Mg-200 Unit) 1 tab PO DAILY [facility] Last Admin: 11/09/20 09:09 Dose: 1 tab Documented by: Cholecalciferol (Vitamin D3) 50 mcg PO DAILY [facility] Last Admin: 11/09/20 09:10 Dose: 50 mcg Documented by: Cyanocobalamin (Vitamin B12) 1,000 mcg PO DAILY [facility] Last Admin: 11/09/20 09:10 Dose: 1,000 mcg Documented by: Dexamethasone (Dexamethasone) 6 mg PO DAILY [facility] Stop: 11/16/20 09:01 Last Admin: 11/09/20 09:11 Dose: 6 mg Documented by: Enoxaparin Sodium (Lovenox) 40 mg SUBCUT DAILY [facility] Last Admin: 11/09/20 09:11 Dose: 40 mg Documented by: Guaifenesin/Phenylephrine HCl (Robitussin Dm) 10 ml PO Q4H PRN PRN Reason: Cough Hydralazine HCl (Apresoline) 20 mg IVPUSH Q4H PRN PRN Reason: Hypertension Hydromorphone HCl (Dilaudid) 0.25 mg IVPUSH Q2H PRN PRN Reason: Pain (severe 7-10) Promethazine HCl 6.25 mg/ (Sodium Chloride) 50.25 mls @ 100 mls/hr IV Q6H PRN PRN Reason: Nausea/Vomiting Remdesivir 100 mg/ Sodium (Chloride) 100 mls @ 100 mls/hr IV Q24H [facility] Stop: 11/11/20 22:29 Last Admin: 11/08/20 21:22 Dose: 100 mls/hr Documented by: Insulin Human Lispro (Humalog) 0 unit SUBCUT TIDAC [facility]; Protocol Last Admin: 11/09/20 07:41 Dose: Not Given Documented by: Lisinopril (Prinivil) 20 mg PO DAILY [facility] Last Admin: 11/09/20 09:09 Dose: 20 mg Documented by: Metoprolol Succinate (Toprol Xl) 12.5 mg PO BEDTIME [facility] Last Admin: 11/08/20 21:24 Dose: 12.5 mg Documented by: Metoprolol Tartrate (Lopressor) 5 mg IVPUSH Q6H PRN PRN Reason: Tachycardia Ondansetron HCl (Zofran) 4 mg IV Q6H PRN PRN Reason: Nausea/Vomiting Polyethylene Glycol (Miralax) 17 gm PO DAILY PRN PRN Reason: Constipation Senna/Docusate Sodium (Senna Plus) 1 tab PO BID PRN PRN Reason: Constipation Simvastatin (Zocor) 20 mg PO BEDTIME [facility] Last Admin: 11/08/20 21:23 Dose: 20 mg Documented by: Sodium Chloride (Saline Flush) 10 ml FLUSH ASDIRECTED PRN PRN Reason: Keep Vein Open Last Admin: 11/07/20 18:09 Dose: 10 ml Documented by: Zinc Sulfate (Zincate) 220 mg PO DAILY [facility] Last Admin: 11/09/20 09:08 Dose: 220 mg Documented by: Discontinued Medications Dexamethasone (Dexamethasone) 6 mg PO ONETIME ONE Stop: 11/07/20 17:21 Last Admin: 11/07/20 18:05 Dose: 6 mg Documented by: Dexamethasone (Decadron) 6 mg IVPUSH DAILY [facility] [place] Last Admin: 11/08/20 08:45 Dose: 6 mg Documented by: Sodium Chloride (Normal Saline) 1,000 mls @ 150 mls/hr IV NOW STA Stop: 11/07/20 23:58 Last Admin: 11/07/20 18:05 Dose: 150 mls/hr Documented by: Remdesivir 200 mg/ Sodium (Chloride) 250 mls @ 250 mls/hr IV ONETIME ONE Stop: 11/07/20 20:47 Last Admin: 11/07/20 21:41 Dose: 250 mls/hr Documented by: Remdesivir 100 mg/ Sodium (Chloride) 100 mls @ 100 mls/hr IV Q24H [facility] Stop: 11/11/20 09:59 Insulin Human Lispro (Humalog) 0 unit SUBCUT TIDAC PRN; Protocol PRN Reason: Hyperglycemia Metoprolol Succinate (Toprol Xl) 12.5 mg PO DAILY [facility] [place] Last Admin: 11/08/20 09:16 Dose: Not Given Documented by: Potassium Chloride (Klor-Con M20) 40 meq PO ONETIME ONE Stop: 11/07/20 17:19 Last Admin: 11/07/20 18:05 Dose: 40 meq Documented by: - Exam Quality Assessment: Denies: Supplemental Oxygen General: Reports: Alert, Oriented HEENT: Reports: Pupils Equal, EOMI, Mucous Membr. Moist/[place] Neck: Reports: Supple Lungs: Reports: Normal Respiratory Effort, Rales (Bibasilar) Cardiovascular: Reports: Regular Rate, Regular Rhythm GI/Abdominal Exam: Normal Bowel Sounds, Soft, Non-Tender, No Organomegaly, No Distention Extremities: Normal Inspection, Normal Range of Motion, Non-Tender, No Pedal Edema, Normal Capillary Refill Psy/Mental Status: Reports: Alert, Normal Affect, Normal Mood
== END 2020-11-09 12:16 | disposition home or self-care (01) | DRG 177 ==
LOC: JD.ED 14:59 → JD.MS 18:31
PROVIDERS: ADMIT Internal Medicine; ATTEND Internal Medicine
PROC: XW033E5 Introduction of Remdesivir Anti-infective into Peripheral Vein, Percutaneous Approach, New Technology Group 5 (ICD-10-PCS; principal; 2020-11-07)
DX: U07.1 COVID-19 (principal); J96.91 Respiratory failure, unspecified with hypoxia; E87.1 Hypo-osmolality and hyponatremia; E87.6 Hypokalemia; E87.8 Other disorders of electrolyte and fluid balance, not elsewhere classified; E88.09 Other disorders of plasma-protein metabolism, not elsewhere classified; I10 Essential (primary) hypertension; E66.3 Overweight; E78.5 Hyperlipidemia, unspecified; E78.00 Pure hypercholesterolemia, unspecified; R00.1 Bradycardia, unspecified; Z88.5 Allergy status to narcotic agent; Z88.8 Allergy status to other drugs, medicaments and biological substances; Z79.82 Long term (current) use of aspirin; Z79.899 Other long term (current) drug therapy; Z90.49 Acquired absence of other specified parts of digestive tract; Z87.891 Personal history of nicotine dependence; Z98.890 Other specified postprocedural states; Z68.26 Body mass index [BMI] 26.0-26.9, adult
CPT/HCPCS: 36415; 36600; 71045; 80053; 82728; 82803; 83615; 83880; 84484; 85025; 85379; 86140; 93005; A9270; J7030; J8540; 82306; 82962; 83735; 84439; 84443; 85652; 87486; 87581; 87633; 87798; 94760; 94761; 97162-GP; 97165-GO; J1100; J1650; J1815-GY; J7050

== ENCOUNTER 2022-10-29 13:05 | Emergency (ER) | payer MEDICARE, OTHER ==
[2022-10-29] MEDS ORDERED: Famotidine 20 MG Tab PO ONE (14:39)
== END 2022-10-29 17:20 | disposition home or self-care (01) ==
LOC: JD.ED 13:05
DX: K21.9 Gastro-esophageal reflux disease without esophagitis (principal); E78.00 Pure hypercholesterolemia, unspecified; I10 Essential (primary) hypertension; Z88.6 Allergy status to analgesic agent; Z79.82 Long term (current) use of aspirin; Z79.899 Other long term (current) drug therapy; Z87.891 Personal history of nicotine dependence
CPT/HCPCS: 36415; 71045; 80053; 84484; 85025; 85379; 85610; 85730; 99285; A9270

== ENCOUNTER → 2023-04-18 | Day surgery (SDC) | payer MEDICARE, OTHER ==
[~2023-04-18] MED LIST: Acetaminophen 325 MG Tab PO SCH; EPINEPHrine 1 MG/ML SDV ONE; HYDROmorphone 0.5 MG/0.5 ML Syringe IVPUSH PRN; Lactated Ringers 1,000 ML IV SCH; Lidocaine 1% 2 ML ONE; Lidocaine 1%/Sod Bicarbonate in NS 8.4% 1 ML Syringe IDERM PRN; Midazolam 1 MG/ML 2 ML SDV ONE; Morphine 8 MG, EPINEPHrine 0.3 MG, Cefuroxime 750 MG, Ketorolac 30 MG, Sodium Chloride ... PRN; Ondansetron 4 MG/2 ML SDV IVPUSH PRN; Phenylephrine 1% 10 MG/ML SDV ONE; Pregabalin 25 MG Cap PO SCH; Propofol 200 MG/20 ML SDV ONE; Ropivacaine 0.5% 5 MG/ML 30 ML SDV ONE; Sodium Chloride 0.9% 10 ML Syringe FLUSH PRN; Sodium Chloride 0.9% 10 ML Syringe FLUSH SCH; Tranexamic Acid 1,000 MG/10 ML Vial ONE; Vancomycin 1 GM SDV ONE; ceFAZolin 2 GM Vial ONE; fentaNYL 100 MCG/2 ML SDV IVPUSH PRN; fentaNYL 100 MCG/2 ML SDV ONE; oxyCODONE 5 MG Tab PO PRN; oxyCODONE ER 10 MG TAB.ER PO SCH
== END | disposition home or self-care (01) ==
LOC: JD.SDS 07:59
PROVIDERS: ATTEND Orthopaedic Surgery
DX: M17.11 Unilateral primary osteoarthritis, right knee (principal); M79.81 Nontraumatic hematoma of soft tissue; G89.29 Other chronic pain; I10 Essential (primary) hypertension; K21.9 Gastro-esophageal reflux disease without esophagitis; E78.2 Mixed hyperlipidemia; Z79.899 Other long term (current) drug therapy; Z88.5 Allergy status to narcotic agent; Z88.8 Allergy status to other drugs, medicaments and biological substances; Z87.891 Personal history of nicotine dependence; Z96.651 Presence of right artificial knee joint; Z79.82 Long term (current) use of aspirin
CPT/HCPCS: 0055T; 27487; 64447; 73560; 97110; 97116; 97161; A9270; C1713; C1776; J0171; J0690; J0697; J1885; J2250; J2270; J2370; J2704; J2795; J3010; J3370; J7120; 01402; 99100; J3490

== ENCOUNTER 2025-03-12 09:48 | Day surgery (SDC) | payer MEDICARE, OTHER ==
[2025-03-12] MEDS: Lidocaine 1% PF 2 ML SDV INJECT SCH (09:49)
[2025-03-12] MEDS: Tetracaine HCl/PF 0.5% 4 ML Bottle EYEBOTH SCH (09:49)
[2025-03-12] MEDS: Polymyxin B/Trimethoprim 10 ML Bottle EYERT SCH (09:49)
[2025-03-12] MEDS: Phenylephrine 2.5% Ophth Soln 2 ML Bot EYERT SCH (09:49)
[2025-03-12] MEDS: Brimonidine 0.2% Ophth Soln 5 ML Bottle EYERT SCH (09:50)
[2025-03-12] MEDS: Pilocarpine 4% Ophth Soln 15 ML Bot EYERT SCH (09:50)
[2025-03-12] MEDS: Cefuroxime 10 MG/ML SYRINGE EYERT SCH (09:50)
== END 2025-03-12 12:35 ==
LOC: JD.SDS 09:48
PROVIDERS: ATTEND Ophthalmology
DX: H26.9 Unspecified cataract (principal); Z87.891 Personal history of nicotine dependence; H25.813 Combined forms of age-related cataract, bilateral; H35.3131 Nonexudative age-related macular degeneration, bilateral, early dry stage; H35.363 Drusen (degenerative) of macula, bilateral; I10 Essential (primary) hypertension; E78.2 Mixed hyperlipidemia; Z79.899 Other long term (current) drug therapy
CPT/HCPCS: 66984; A9270; J0697; J3490; V2632

== ENCOUNTER 2025-04-09 13:18 | Day surgery (SDC) | payer MEDICARE, OTHER ==
[2025-04-09] MEDS: Cefuroxime 10 MG/ML SYRINGE EYELF SCH (07:42)
[2025-04-09] MEDS: Lidocaine 1% PF 2 ML SDV INJECT SCH (07:42)
[2025-04-09] MEDS: Tetracaine HCl/PF 0.5% 4 ML Bottle EYEBOTH SCH (07:42)
[2025-04-09] MEDS: Phenylephrine 2.5% Ophth Soln 2 ML Bot EYELF SCH (07:42)
[2025-04-09] MEDS: Pilocarpine 4% Ophth Soln 15 ML Bot EYELF SCH (07:43)
[2025-04-09] MEDS: Brimonidine 0.2% Ophth Soln 5 ML Bottle EYELF SCH (07:43)
[2025-04-09] MEDS: Polymyxin B/Trimethoprim 10 ML Bottle EYELF SCH (07:43)
[2025-04-09] MEDS: Tropicamide 1% Ophth Soln 3 ML Bottle EYELF SCH (13:50)
== END 2025-04-09 15:24 ==
LOC: JD.SDS 13:18
PROVIDERS: ATTEND Ophthalmology
DX: H25.812 Combined forms of age-related cataract, left eye (principal); I10 Essential (primary) hypertension; E78.2 Mixed hyperlipidemia; K21.9 Gastro-esophageal reflux disease without esophagitis; Z87.891 Personal history of nicotine dependence; Z79.899 Other long term (current) drug therapy; Z88.5 Allergy status to narcotic agent; Z96.1 Presence of intraocular lens
CPT/HCPCS: 66984; A9270; J0697; J3490